=== PATIENT | female | born 1970 | race Caucasian/White ===

== ENCOUNTER 2018-07-10 21:32 | Emergency (ER) | END 2018-07-11 00:07 | disposition home or self-care (01) ==

== ENCOUNTER 2018-11-11 20:03 | Emergency (ER) | payer OTHER ==
[~2018-11-11] VITALS: Ht 172.7 cm; Wt 127.1 kg
[2018-11-11 20:10] VITALS: Ht 172.7 cm; Wt 127.1 kg
--- NOTE | 2018-11-11 22:54 | ERD ---
ER Documentation Chief Complaint Chief Complaint BILATERAL TOE NAIL PAIN HPI This is a 48-year-old female who presents to the emergency room with complaint of by lateral toenail concern. Patient states that she has been dealing with toenail fungus for several months. She has been prescribed topical antifungal in the past and had ran out so she has been applying amoxicillin powder and Neosporin and is concerned that the fungal infection is not improving. Denies pain. Medical history significant for diabetes. ROS All systems reviewed and are negative except as per history of present illness. Medications Home Meds Active Scripts Sulfamethoxazole/Trimethoprim* (Bactrim Ds* Tablet) 1 Each Tablet, 1 TAB PO BID for 10 Days, #20 TAB Prov:SOPHIA ALBA NP 11/11/18 Ciclopirox/Ure/Camph/Menth/Euc (CICLOPIROX 8% TREATMENT KIT) 34.6 Ml Solution, 1 APPLIC TP QHS for 30 Days, #1 BOTTLE Prov:SOPHIA ALBA BI SPECIALIST 11/11/18 Allergies Allergies: Coded Allergies: No Known Allergy (Unverified , 07/10/18) PMhx/Soc History of Surgery: Yes (gallbladder) Hx Miscellaneous Medical Probl: Yes (DM) Hx Alcohol Use: No Hx Substance Use: No Hx Tobacco Use: No FmHx Family History: diabetes Physical Exam Vitals Vital Signs Date Temp Pulse Resp B/P (MAP) Pulse Ox O2 O2 Flow FiO2 Time Delivery Rate 11/11/18 98.1 98 18 124/58 100 Room Air 23:22 (80) 11/11/18 100.1 107 17 150/68 96 20:10 (95) Physical Exam Const: No acute distress Head: Atraumatic Eyes: Normal Conjunctiva ENT: Normal External Ears, Nose and Mouth. Neck: Full range of motion. No meningismus. Resp: Clear to auscultation bilaterally Cardio: Regular rate and rhythm, no murmurs Abd: Soft, non tender, non distended. Normal bowel sounds Skin: No petechiae or rashes. BL great toes with absent toe nails, +erythema, yellowish dry flaky crust over nail plate, cap refill <2 sec, no redness at cuticles.BL toenails 2-5 with mild onychomycosis. No evidence of nail fungus on hands. Ext: No cyanosis, or pitting edema Neur: Awake and alert Psych: Normal Mood and Affect Procedures/MDM This is a 48 yo female patient with c/o unresolved onychomycosis. Her doctor has prescribed Ciclopirox in the past which she used x1 dose then stopped when it ran out and has been trying home remedies since. She denies pain, no fever, no difficulty with ambulation. She is also diabetic and has not been regularly taking antidiabetics or maintaining diabetic diet. Long discussion had with patient regarding self-care, toenail care, and need to bring blood glucose down in order to properly heal toes. Additionally, patient was instructed to follow-up with her PMD [facility] for further care and referral to podiatry. Patient was instructed to stop using amoxicillin capsules on her toes. She has been provided with prescription for ciclopirox with instructions for use. Due to her diabetes and reddened nail plate on right toes, antibiotics were initiated at this time. This patients soft tissue infection appears to be appropriate for outpatient treatment with close follow-up for reevaluation by a clinician within 24-48 hours. A serious, rapidly progressive infectious process is unlikely based upon the patients presentation and appearance of the infection. Antibiotic treatment has been initiated here and response to treatment will be based on reassessment at close follow-up. The patient has been instructed on signs and symptoms of acute progression of infection and to return immediately if any of these occur. DISPOSITION: Home to care of community physician. Departure Diagnosis: Primary Impression: Onychomycosis Condition: Stable Patient Instructions: Ciclopirox Nail Solution Referrals: [facility] Additional Instructions: Thank you very much for allowing us to participate in your care. Your health and safety is our top priority at [facility]. Call your primary care doctor TOMORROW for an appointment during the next 2-4 days and bring all the information and medications prescribed. Have prescriptions filled and follow precisely the directions on the label. If the symptoms get worse and your provider is unavailable, return to the Emergency Department immediately. FOLLOW-UP WITH YOUR TRAVEL AGENCY MANAGER SOON POSSIBLE USE TOPICAL MEDICATION PRESCRIBED COMPLETE ENTIRE COURSE OF ANTIBIOTIC KEEP TOENAILS CLEAN AND DRY SOPHIA ALBA NP Nov 11, 2018 22:54
[2018-11-11] MEDS ORDERED: SULF1TAB31 PO (22:59)
[2018-11-11] MEDS ORDERED: CICL34.6 TP (22:59)
[2018-11-11 23:22] VITALS: BP 124/58; PULSE 98; RESP 18
== END 2018-11-11 23:23 | disposition home or self-care (01) ==
LOC: FTE 20:03
DX: B35.1 Tinea unguium (principal); E11.9 Type 2 diabetes mellitus without complications
CPT/HCPCS: 99283

== ENCOUNTER 2019-01-09 09:01 | Day surgery (SDC) | payer OTHER ==
[2019-01-08 18:09] VITALS: Ht 172.7 cm; Wt 124.1 kg
[~2019-01-09] VITALS: Ht 172.7 cm; Wt 124.1 kg
[~2019-01-09 09:01] MED LIST: CICL34.6 TP; SULF1TAB31 PO
[2019-01-09 09:44] VITALS: BP 145/68; PULSE 86; RESP 16
[2019-01-09] MEDS ORDERED: ATOR20TA38 PO (09:51)
[2019-01-09] MEDS ORDERED: GABA300C16 PO (09:51)
[2019-01-09] MEDS ORDERED: DAPA10TA PO (09:51)
[2019-01-09] MEDS ORDERED: FOLI-49 PO (09:51)
[2019-01-09] MEDS ORDERED: CHOL100062 PO (09:51)
[2019-01-09] MEDS ORDERED: SITA1TAB5 PO (09:51)
[2019-01-09] MEDS ORDERED: CARV25TA97 PO (09:51)
[2019-01-09] MEDS ORDERED: IRBE1TAB35 PO (09:51)
[2019-01-09] MEDS ORDERED: LIDOCAINE 1% (MDV) 20 ML INJ ONE (14:43)
== END 2019-01-09 15:40 | disposition home or self-care (01) ==
LOC: SDS 09:01
PROVIDERS: ATTEND Internal Medicine
DX: E04.1 Nontoxic single thyroid nodule (principal)
CPT/HCPCS: 60100; 82962; 88104; 88305; Z7610